=== PATIENT | female | born 1945 | race Two or more races ===

== ENCOUNTER 2019-05-16 12:26 | Inpatient (IN) | payer OTHER ==
[~2019-05-16] VITALS: Ht 167.6 cm; Wt 103.2 kg
[2019-05-16] VITALS (8 sets, daily range): BP systolic 138–186; BP diastolic 55–82
[~2019-05-16 12:26] MED LIST: HYDR-2761 PO
[2019-05-16] MEDS ORDERED: ONDANSETRON PF 4 MG/2 ML VIAL. IV ONE (12:45)
[2019-05-16] MEDS ORDERED: IV NORMAL SALINE 500ML BAG 500 ML IV ONE (12:45)
[2019-05-16] MEDS ORDERED: MORPHINE SULFATE 10 MG/ML VIAL. IV STA ×2 (12:45→13:33)
--- NOTE | 2019-05-16 12:54 | PHYS DOC ---
Past Medical History Past Medical History: Other Additional Past Medical Histor: "2 small holes in my heart" Past Surgical History: Cholecystectomy, Hysterectomy Additional Past Surgical Histo: R knee surgery, L foot surgery, cataracts Alcohol Use: None Drug Use: None Adult General Chief Complaint Chief Complaint: WRIST PAIN HPI HPI Patient is a 74 year old female who presents with deformity to the left wrist. The patient states she was at [employer] and something fell from the top shelf and she braced and blocked her body with her left hand/forearm and ever since then she's been in pain and had deformity to that area. The patient does take warfarin on a daily basis due to septal heart defect.. She states her last INR was 2.1. She rates her pain as 10 out of 10 in severity and sharp. The patient also states she's been having numbness and tingling in her hand, and her 3rd- fifth digits has felt cold to the touch. Review of Systems Review of Systems Constitutional: Denies fever or chills [] Eyes: Denies change in visual acuity, redness, or eye pain [] HENT: Denies nasal congestion or sore throat [] Respiratory: Denies cough or shortness of breath [] Cardiovascular: No additional information not addressed in HPI [] GI: Denies abdominal pain, nausea, vomiting, bloody stools or diarrhea [] : Denies dysuria or hematuria [] Musculoskeletal: Reports L wrist pain. Integument: Denies rash or skin lesions [] Neurologic: Denies headache, focal weakness or sensory changes [] Endocrine: Denies polyuria or polydipsia [] Complete systems were reviewed and found to be within normal limits, except as documented in this note. Current Medications Current Medications Current Medications Medications (Trade) Dose Ordered Sig/Leighann Start Time Stop Time Status Last Admin Dose Admin Cefazolin Sodium/ Dextrose 50 ml @ 100 mls/hr 1X PREOP PRN 05/16/19 14:45 Desflurane (Suprane) 30 ml STK-MED ONCE 05/16/19 14:52 05/16/19 14:52 DC Dexamethasone Sodium Phosphate (Decadron) 4 mg STK-MED ONCE 05/16/19 14:52 05/16/19 14:52 DC Fentanyl Citrate (Fentanyl 2ml Vial) 50 mcg PRN Q5MIN PRN 05/16/19 13:15 05/16/19 20:00 Hydromorphone HCl (Dilaudid) 0.5 mg PRN Q10MIN PRN 05/16/19 13:15 05/16/19 20:00 05/16/19 13:43 0.5 MG Lidocaine HCl (Lidocaine Pf 2% Vial) 5 ml STK-MED ONCE 05/16/19 14:51 05/16/19 14:52 DC Morphine Sulfate (Morphine Sulfate) 5 mg 1X STAT 05/16/19 13:33 05/16/19 13:38 DC Ondansetron HCl (Zofran) 4 mg STK-MED ONCE 05/16/19 14:52 05/16/19 14:52 DC Prochlorperazine Edisylate (Compazine) 5 mg PACU PRN PRN 05/16/19 13:15 05/16/19 20:00 Propofol 20 ml @ As Directed STK-MED ONCE 05/16/19 14:51 05/16/19 14:52 DC Ringer's Solution 1,000 ml @ 30 mls/hr Q24H 05/16/19 13:03 05/17/19 01:02 Sodium Chloride 500 ml @ 500 mls/hr 1X ONCE 05/16/19 12:45 05/16/19 13:44 DC 05/16/19 12:45 500 MLS/HR Allergies Allergies Allergies Coded Allergies Type Severity Reaction Last Updated Verified No Known Drug Allergies 05/10/14 No Physical Exam Physical Exam Constitutional: Well developed, well nourished, no acute distress, non-toxic appearance. [] HENT: Normocephalic, atraumatic, bilateral external ears normal, oropharynx moist, no oral exudates, nose normal. [] Eyes: PERRLA, EOMI, conjunctiva normal, no discharge. [] Neck: Normal range of motion, no tenderness, supple, no stridor. [] Cardiovascular:Heart rate regular rhythm, no murmur [] Lungs & Thorax: Bilateral breath sounds clear to auscultation [] Abdomen: Bowel sounds normal, soft, no tenderness, no masses, no pulsatile masses. [] Skin: Warm, dry, no erythema, no rash. [] Back: No tenderness, no CVA tenderness. [] Extremities: Deformity to L wrist with diffuse tenderness. No ROM, Can move f ingers and feel sensation to distal finger tips. The patient 3rd-5th digits are colder than 1st and 2nd digits. The patient has a weak radial pulse. Neurologic: Alert and oriented X 3, normal motor function, normal sensory function, no focal deficits noted. [] Psychologic: Affect normal, judgement normal, mood normal. [] Current Patient Data Vital Signs Vital Signs Date Time Temp Pulse Resp B/P (MAP) Pulse Ox O2 Delivery O2 Flow Rate FiO2 05/16/19 13:43 19 97 Room Air 05/16/19 13:13 99.2 91 187/99 (128) 99.2 Lab Values Laboratory Tests Test 05/16/19 12:50 05/16/19 13:05 05/16/19 13:40 White Blood Count 6.0 x10^3/uL (4.0-11.0) Red Blood Count 4.40 x10^6/uL (3.50-5.40) Hemoglobin 13.8 g/dL (12.0-15.5) Hematocrit 39.8 % (36.0-47.0) Mean Corpuscular Volume 91 fL (79-100) Mean Corpuscular Hemoglobin 31 pg (25-35) Mean Corpuscular Hemoglobin Concent 35 g/dL (31-37) Red Cell Distribution Width 14.0 % (11.5-14.5) Platelet Count 319 x10^3/uL (140-400) Neutrophils (%) (Auto) 52 % (31-73) Lymphocytes (%) (Auto) 40 % (24-48) Monocytes (%) (Auto) 5 % (0-9) Eosinophils (%) (Auto) 3 % (0-3) Basophils (%) (Auto) 1 % (0-3) Neutrophils # (Auto) 3.1 x10^3/uL (1.8-7.7) Lymphocytes # (Auto) 2.4 x10^3/uL (1.0-4.8) Monocytes # (Auto) 0.3 x10^3/uL (0.0-1.1) Eosinophils # (Auto) 0.2 x10^3/uL (0.0-0.7) Basophils # (Auto) 0.0 x10^3/uL (0.0-0.2) Sodium Level 144 mmol/L (136-145) Potassium Level 3.3 mmol/L (3.5-5.1) L Chloride Level 106 mmol/L (98-107) Carbon Dioxide Level 26 mmol/L (21-32) Anion Gap 12 (6-14) Blood Urea Nitrogen 6 mg/dL (7-20) L Creatinine 1.0 mg/dL (0.6-1.0) Estimated GFR (Cockcroft-Gault) 54.3 BUN/Creatinine Ratio 6 (6-20) Glucose Level 100 mg/dL (70-99) H Calcium Level 8.5 mg/dL (8.5-10.1) Total Bilirubin 0.7 mg/dL (0.2-1.0) Aspartate Amino Transferase (AST) 16 U/L (15-37) Alanine Aminotransferase (ALT) 13 U/L (14-59) L Alkaline Phosphatase 164 U/L (46-116) H Total Protein 7.9 g/dL (6.4-8.2) Albumin 3.6 g/dL (3.4-5.0) Albumin/Globulin Ratio 0.8 (1.0-1.7) L Prothrombin Time 26.7 SEC (11.7-14.0) H Prothrombin Time INR 2.5 (0.8-1.1) H Activated Partial Thromboplast Time 45 SEC (24-38) H Laboratory Tests 05/16/19 12:50 Laboratory Tests 05/16/19 13:05 EKG EKG [] Radiology/Procedures Radiology/Procedures [facility] [address] [place], [place] [id number] IMAGING REPORT Signed PATIENT: PIPER RAINES ACCOUNT: [id number] : 1945 LOCATION: ER AGE: 74 SEX: F EXAM STATUS: REG ER ORD. PHYSICIAN: ADRIEL MCCLELLAN APRN REASON: evaluate vascular status of L upper extremity./COLD LT HAND PROCEDURE: UPPER EXT ARTERIAL LEFT Left upper extremity arterial duplex ultrasound study without comparison for cold hand. TECHNIQUE AND FINDINGS: Real-time grayscale and color and spectral Doppler evaluation of the left upper extremity arterial vasculature is performed. The left subclavian, axillary, brachial, radial, and ulnar arteries are all widely patent demonstrating biphasic flow with no focal velocity elevations to suggest hemodynamically significant stenosis. Within the subcutaneous tissues of the dorsal forearm, there is a 5 cm x 1.7 cm complex fluid collection with no internal color flow, which could represent soft tissue abscess or hematoma. IMPRESSION: 1. No evidence of hemodynamic significant stenosis involving left upper extremity arterial tree. 2. 5 cm complex fluid collection in the dorsal forearm. Consider abscess versus hematoma. Electronically signed by: Robby Bates MD (05/16/2019 2:10 PM) [facility] DICTATED and SIGNED BY: ROBBY BATES MD DATE: 05/16/19 1410 [facility] [address] [place] [address] IMAGING REPORT Signed PATIENT: PIPER RAINES ACCOUNT: [id number] : 1945 LOCATION: ER AGE: 74 SEX: F EXAM STATUS: REG ER ORD. PHYSICIAN: ADRIEL MCCLELLAN APRN REASON: deformity, trauma PROCEDURE: FOREARM LEFT Left hand 3 views, left forearm 2 views, left wrist 3 views. HISTORY: Deformity, trauma Left hand 3 views were taken of the left hand. 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 There is no acute fracture noted involving the left hand. Left wrist 3 views 3 views were taken of the left wrist. There is significant dorsal soft tissue swelling with a possible prominent hematoma. There is no acute fracture. 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 Left forearm 2 views were taken of the left forearm. There is no acute fracture. There is no acute osseous abnormality. A good lateral of the elbow was not obtained. IMPRESSION: 1. Prominent dorsal soft tissue swelling at the wrist possible hematoma. 2. No fracture noted in the left forearm. 3. No acute fracture noted at the left wrist. 4. No fracture noted in the left hand. Electronically signed by: Bradley Fraser MD (05/16/2019 1:37 PM) [facility] DICTATED and SIGNED BY: BRADLEY FRASER MD DATE: 05/16/19 1337 [][facility] [address] [place], [place] [id number] IMAGING REPORT Signed PATIENT: PIPER RAINES ACCOUNT: [id number] : 1945 LOCATION: ER AGE: 74 SEX: F EXAM STATUS: REG ER ORD. PHYSICIAN: ADRIEL MCCLELLAN APRN REASON: surgical clearance PROCEDURE: CHEST AP ONLY AP chest. HISTORY: Surgical clearance, trauma, deformity at wrist AP view was taken of the chest. Lungs are clear. Heart is normal in size. There is no pleural effusion. IMPRESSION: 1. No acute chest disease. Electronically signed by: Bradley Fraser MD (05/16/2019 1:34 PM) [facility] DICTATED and SIGNED BY: BRADLEY FRASER MD DATE: 05/16/19 5845 Course & Med Decision Making Course & Med Decision Making Pertinent Labs and Imaging studies reviewed. (See chart for details) Am concerned that this patient will need surgery. Will go ahead and work labs, chest x-ray, ekg for surgical clearance. Will also get x-ray of wrist. Will o rder supportive care. Discussed with Dr. Casey from vascular who suggests an Ultrasound of the vessels. She suggests called orthopedics ([id number]). Discussed with Dr. Bolanos from Orthopedics ([id number]). Dr. Bolanos will take the patient to surgery. Will discuss with Dr. Fitzgerald for admission. Dr. Fitzgerald accepts admission ([id number]). Dragon Disclaimer Dragon Disclaimer This electronic medical record was generated, in whole or in part, using a voice recognition dictation system. Departure Departure Impression: Primary Impression: Traumatic hematoma of wrist Disposition: ADMITTED INPATIENT Condition: STABLE Referrals: AMY SAHNI (PCP) Problem Qualifiers Primary Impression: Traumatic hematoma of wrist Encounter type: initial encounter Laterality: left Qualified Codes: S60.212A - Contusion of left wrist, initial encounter ADRIEL MCCLELLAN APRN May 16, 2019 12:54
[2019-05-16 12:58] LABS: BASO % 1 % (0-3); EOS # 0.2 x10^3/uL (0.0-0.7); EOS % 3 % (0-3); HEMATOCRIT 39.8 % (36.0-47.0); HEMOGLOBIN 13.8 g/dL (12.0-15.5); LYMPH # 2.4 x10^3/uL (1.0-4.8); LYMPH % 40 % (24-48); MEAN CORPUSCULAR HEMOGLOBIN 31 pg (25-35); MEAN CORPUSCULAR HGB CONC 35 g/dL (31-37); MEAN CORPUSCULAR VOLUME 91 fL (79-100); MONO # 0.3 x10^3/uL (0.0-1.1); MONO % 5 % (0-9); NEUT # 3.1 x10^3/uL (1.8-7.7); NEUT % 52 % (31-73); PLATELET COUNT 319 x10^3/uL (140-400)
[2019-05-16] MEDS ORDERED: IV RINGERS,LACTATED 1000ML 1,000 ML IV SCH ×2 (13:03→16:15)
[2019-05-16] MEDS ORDERED: ONDANSETRON PF 4 MG/2 ML VIAL. IV PRN ×2 (13:15→16:15)
[2019-05-16] MEDS ORDERED: fentaNYL PF VIAL 100 MCG/2 ML VIAL IV PRN ×4 (13:15→16:15)
[2019-05-16] MEDS ORDERED: HYDROmorphone 2 MG/ML VIAL IV PRN ×2 (13:15→16:15)
[2019-05-16] MEDS ORDERED: MORPHINE SULFATE 2 MG/ML VIAL. IV PRN ×2 (13:15→16:15)
[2019-05-16] MEDS ORDERED: PROCHLORPERAZINE 10 MG/2 ML VIAL. IV PRN ×2 (13:15→16:15)
--- NOTE | 2019-05-16 13:37 | RAD ---
AP chest. HISTORY: Surgical clearance, trauma, deformity at wrist AP view was taken of the chest. Lungs are clear. Heart is normal in size. There is no pleural effusion. IMPRESSION: 1. No acute chest disease. Electronically signed by: Bradley Fraser MD (05/16/2019 1:34 PM) [facility]
[2019-05-16 13:39] LABS: CALCIUM 8.5 mg/dL (8.5-10.1); GFR 54.3; POTASSIUM 3.3 mmol/L (3.5-5.1)
--- NOTE | 2019-05-16 13:40 | RAD ---
Left hand 3 views, left forearm 2 views, left wrist 3 views. HISTORY: Deformity, trauma Left hand 3 views were taken of the left hand. 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 There is no acute fracture noted involving the left hand. Left wrist 3 views 3 views were taken of the left wrist. There is significant dorsal soft tissue swelling with a possible prominent hematoma. There is no acute fracture. 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 Left forearm 2 views were taken of the left forearm. There is no acute fracture. There is no acute osseous abnormality. A good lateral of the elbow was not obtained. IMPRESSION: 1. Prominent dorsal soft tissue swelling at the wrist possible hematoma. 2. No fracture noted in the left forearm. 3. No acute fracture noted at the left wrist. 4. No fracture noted in the left hand. Electronically signed by: Bradley Fraser MD (05/16/2019 1:37 PM) [facility]
[2019-05-16 13:45] LABS: ALBUMIN 3.6 g/dL (3.4-5.0); ALBUMIN/GLOBULIN RATIO 0.8 (1.0-1.7); TOTAL BILIRUBIN 0.7 mg/dL (0.2-1.0); TOTAL PROTEIN 7.9 g/dL (6.4-8.2)
[2019-05-16 14:10] LABS: PROTHROMBIN TIME PATIENT 26.7 SEC (11.7-14.0)
--- NOTE | 2019-05-16 14:13 | RAD ---
Left upper extremity arterial duplex ultrasound study without comparison for cold hand. TECHNIQUE AND FINDINGS: Real-time grayscale and color and spectral Doppler evaluation of the left upper extremity arterial vasculature is performed. The left subclavian, axillary, brachial, radial, and ulnar arteries are all widely patent demonstrating biphasic flow with no focal velocity elevations to suggest hemodynamically significant stenosis. Within the subcutaneous tissues of the dorsal forearm, there is a 5 cm x 1.7 cm complex fluid collection with no internal color flow, which could represent soft tissue abscess or hematoma. IMPRESSION: 1. No evidence of hemodynamic significant stenosis involving left upper extremity arterial tree. 2. 5 cm complex fluid collection in the dorsal forearm. Consider abscess versus hematoma. Electronically signed by: Robby Oneil MD (05/16/2019 2:10 PM) [id number]
[2019-05-16] MEDS ORDERED: PROPOFOL 20 ML IV ONE (14:51)
[2019-05-16] MEDS ORDERED: LIDOCAINE 2% PF 5 ML VIAL. ONE (14:51)
[2019-05-16] MEDS ORDERED: ONDANSETRON PF 4 MG/2 ML VIAL. ONE (14:52)
[2019-05-16] MEDS ORDERED: DEXAMETHASONE SOD PHOS 4 MG/ML VIAL ONE (14:52)
[2019-05-16] MEDS ORDERED: DESFLURANE 31 TO 60 MINUTES IH ONE (14:52)
--- NOTE | 2019-05-16 14:57 | PDOC1 ---
History and Physical Date of Admission Date of Admission DATE: 05/16/19 TIME: 14:57 Identification/Chief Complaint Chief Complaint SEEN IN er, was at [employer] and something fell from the top shelf and she braced and blocked her body with her left hand/forearm and ever since then she's been in pain and had deformity to that area. The patient does take warfarin on a daily basis due to septal heart defect.. She states her last INR was 2.1. She rates her pain as 10 out of 10 in severity and sharp. states she's been having numbness and tingling in her hand, Past Medical History Past Medical History Past Medical History Past Medical History Past Medical History: Other Additional Past Medical Histor: "2 small holes in my heart" Past Surgical History: Cholecystectomy, Hysterectomy Additional Past Surgical Histo: R knee surgery, L foot surgery, cataracts Alcohol Use: None Drug Use: None FHX OBESITY Family History Family History: Hypertension Social History Smoke: No ALCOHOL: none Drugs: None Current Problem List Problem List Problems Medical Problems: (1) Traumatic hematoma of wrist Status: Acute Current Medications Current Medications Current Medications Morphine Sulfate (Morphine Sulfate) 5 mg 1X STAT IV Last administered on 05/16/19at 13:00; Start 05/16/19 at 12:45; Stop 05/16/19 at 12:54; Status DC Ondansetron HCl (Zofran) 4 mg 1X ONCE IV Last administered on 05/16/19at 13:00; Start 05/16/19 at 12:45; Stop 05/16/19 at 12:54; Status DC Sodium Chloride 500 ml @ 500 mls/hr 1X ONCE IV Last administered on 05/16/19at 12:45; Start 05/16/19 at 12:45; Stop 05/16/19 at 13:44; Status DC Ondansetron HCl (Zofran) 4 mg PRN Q6HRS PRN IV NAUSEA/VOMITING; Start 05/16/19 at 13:15; Stop 05/16/19 at 20:00 Fentanyl Citrate (Fentanyl 2ml Vial) 25 mcg PRN Q5MIN PRN IV MILD PAIN 1-3; Start 05/16/19 at 13:15; Stop 05/16/19 at 20:00 Fentanyl Citrate (Fentanyl 2ml Vial) 50 mcg PRN Q5MIN PRN IV MODERATE TO SEVERE PAIN; Start 05/16/19 at 13:15; Stop 05/16/19 at 20:00 Morphine Sulfate (Morphine Sulfate) 1 mg PRN Q10MIN PRN IV SEVERE PAIN 7-10; Start 05/16/19 at 13:15; Stop 05/16/19 at 20:00 Ringer's Solution 1,000 ml @ 30 mls/hr Q24H IV ; Start 05/16/19 at 13:03; Stop 05/17/19 at 01:02 Hydromorphone HCl (Dilaudid) 0.5 mg PRN Q10MIN PRN IV SEV PAIN, Second choice Last administered on 05/16/19at 13:43; Start 05/16/19 at 13:15; Stop 05/16/19 at 20:00 Prochlorperazine Edisylate (Compazine) 5 mg PACU PRN PRN IV NAUSEA, MRX1; Start 05/16/19 at 13:15; Stop 05/16/19 at 20:00 Morphine Sulfate (Morphine Sulfate) 5 mg 1X STAT IV ; Start 05/16/19 at 13:33; Stop 05/16/19 at 13:38; Status DC Cefazolin Sodium/ Dextrose 50 ml @ 100 mls/hr 1X PREOP PRN IV SEE COMMENTS; Start 05/16/19 at 14:45 Propofol 20 ml @ As Directed STK-MED ONCE IV ; Start 05/16/19 at 14:51; Stop 05/16/19 at 14:52; Status DC Lidocaine HCl (Lidocaine Pf 2% Vial) 5 ml STK-MED ONCE .ROUTE ; Start 05/16/19 at 14:51; Stop 05/16/19 at 14:52; Status DC Ondansetron HCl (Zofran) 4 mg STK-MED ONCE .ROUTE ; Start 05/16/19 at 14:52; Stop 05/16/19 at 14:52; Status DC Dexamethasone Sodium Phosphate (Decadron) 4 mg STK-MED ONCE .ROUTE ; Start 05/16/19 at 14:52; Stop 05/16/19 at 14:52; Status DC Desflurane (Suprane) 30 ml STK-MED ONCE IH ; Start 05/16/19 at 14:52; Stop 05/16/19 at 14:52; Status DC Active Scripts Active Hydrocodone-Apap 5-325 (Hydrocodone Bit/Acetaminophen) 1 Each Tablet 1 Tab PO PRN Q6HRS PRN Allergies Allergies: Coded Allergies: No Known Drug Allergies (Unverified , 05/10/14) ROS Review of System Review of Systems Review of Systems Constitutional: Denies fever or chills [] Eyes: Denies change in visual acuity, redness, or eye pain [] HENT: Denies nasal congestion or sore throat [] Respiratory: Denies cough or shortness of breath [] Cardiovascular: No additional information not addressed in HPI [] GI: Denies abdominal pain, nausea, vomiting, bloody stools or diarrhea [] : Denies dysuria or hematuria [] Musculoskeletal: Reports L wrist pain. Integument: Denies rash or skin lesions [] Neurologic: Denies headache, focal weakness or sensory changes [] Endocrine: Denies polyuria or polydipsia [] 14 pt systems were reviewed and found to be within normal limits, except as documented Physical Exam Physical Exam Physical Exam Physical Exam Constitutional: Well developed, well nourished, mild acute distress, non-toxic appearance. [] HENT: Normocephalic, atraumatic, bilateral external ears normal, oropharynx mois t, no oral exudates, nose normal. [] Eyes: PERRLA, EOMI, conjunctiva normal, no discharge. [] Neck: Normal range of motion, no tenderness, supple, no stridor. [] Cardiovascular:Heart rate regular rhythm, no murmur [] Lungs & Thorax: Bilateral breath sounds clear to auscultation [] Abdomen: Bowel sounds normal, soft, no tenderness, no masses, no pulsatile masses. [] Skin: Warm, dry, no erythema, no rash. [] Back: No tenderness, no CVA tenderness. [] Extremities: Deformity to L wrist with diffuse tenderness. No ROM, Can move fingers and feel sensation to distal finger tips. The patient 3rd-5th digits are colder than 1st and 2nd digits. The patient has a weak radial pulse. Neurologic: Alert and oriented X 3, normal motor function, normal sensory function, no focal deficits noted. [] Psychologic: Affect normal, judgment normal, mood normal. [] General: Alert, Oriented X3, Cooperative, mild distress HEENT: Atraumatic, EOMI, Mucous membr. moist/pink Lungs: Clear to auscultation, Normal air movement Heart: RRR, no gallops Breasts: Not examined Abdomen: Normal bowel sounds, Soft Rectal Exam: not examined Neuro: Normal speech, Cranial nerves 3-12 NL Psych/Mental Status: Mental status NL, Mood NL Vitals Vitals Vital Signs Date Time Temp Pulse Resp B/P (MAP) Pulse Ox O2 Delivery O2 Flow Rate FiO2 05/16/19 13:43 19 97 Room Air 05/16/19 13:13 99.2 91 187/99 (128) 99.2 Labs Labs Laboratory Tests Test 05/16/19 12:50 05/16/19 13:05 05/16/19 13:40 White Blood Count 6.0 x10^3/uL (4.0-11.0) Red Blood Count 4.40 x10^6/uL (3.50-5.40) Hemoglobin 13.8 g/dL (12.0-15.5) Hematocrit 39.8 % (36.0-47.0) Mean Corpuscular Volume 91 fL (79-100) Mean Corpuscular Hemoglobin 31 pg (25-35) Mean Corpuscular Hemoglobin Concent 35 g/dL (31-37) Red Cell Distribution Width 14.0 % (11.5-14.5) Platelet Count 319 x10^3/uL (140-400) Neutrophils (%) (Auto) 52 % (31-73) Lymphocytes (%) (Auto) 40 % (24-48) Monocytes (%) (Auto) 5 % (0-9) Eosinophils (%) (Auto) 3 % (0-3) Basophils (%) (Auto) 1 % (0-3) Neutrophils # (Auto) 3.1 x10^3/uL (1.8-7.7) Lymphocytes # (Auto) 2.4 x10^3/uL (1.0-4.8) Monocytes # (Auto) 0.3 x10^3/uL (0.0-1.1) Eosinophils # (Auto) 0.2 x10^3/uL (0.0-0.7) Basophils # (Auto) 0.0 x10^3/uL (0.0-0.2) Sodium Level 144 mmol/L (136-145) Potassium Level 3.3 mmol/L (3.5-5.1) Chloride Level 106 mmol/L (98-107) Carbon Dioxide Level 26 mmol/L (21-32) Anion Gap 12 (6-14) Blood Urea Nitrogen 6 mg/dL (7-20) Creatinine 1.0 mg/dL (0.6-1.0) Estimated GFR (Cockcroft-Gault) 54.3 BUN/Creatinine Ratio 6 (6-20) Glucose Level 100 mg/dL (70-99) Calcium Level 8.5 mg/dL (8.5-10.1) Total Bilirubin 0.7 mg/dL (0.2-1.0) Aspartate Amino Transf (AST/SGOT) 16 U/L (15-37) Alanine Aminotransferase (ALT/SGPT) 13 U/L (14-59) Alkaline Phosphatase 164 U/L (46-116) Total Protein 7.9 g/dL (6.4-8.2) Albumin 3.6 g/dL (3.4-5.0) Albumin/Globulin Ratio 0.8 (1.0-1.7) Prothrombin Time 26.7 SEC (11.7-14.0) Prothromb Time International Ratio 2.5 (0.8-1.1) Activated Partial Thromboplast Time 45 SEC (24-38) Laboratory Tests Test 05/16/19 12:50 05/16/19 13:05 05/16/19 13:40 White Blood Count 6.0 x10^3/uL (4.0-11.0) Red Blood Count 4.40 x10^6/uL (3.50-5.40) Hemoglobin 13.8 g/dL (12.0-15.5) Hematocrit 39.8 % (36.0-47.0) Mean Corpuscular Volume 91 fL (79-100) Mean Corpuscular Hemoglobin 31 pg (25-35) Mean Corpuscular Hemoglobin Concent 35 g/dL (31-37) Red Cell Distribution Width 14.0 % (11.5-14.5) Platelet Count 319 x10^3/uL (140-400) Neutrophils (%) (Auto) 52 % (31-73) Lymphocytes (%) (Auto) 40 % (24-48) Monocytes (%) (Auto) 5 % (0-9) Eosinophils (%) (Auto) 3 % (0-3) Basophils (%) (Auto) 1 % (0-3) Neutrophils # (Auto) 3.1 x10^3/uL (1.8-7.7) Lymphocytes # (Auto) 2.4 x10^3/uL (1.0-4.8) Monocytes # (Auto) 0.3 x10^3/uL (0.0-1.1) Eosinophils # (Auto) 0.2 x10^3/uL (0.0-0.7) Basophils # (Auto) 0.0 x10^3/uL (0.0-0.2) Sodium Level 144 mmol/L (136-145) Potassium Level 3.3 mmol/L (3.5-5.1) Chloride Level 106 mmol/L (98-107) Carbon Dioxide Level 26 mmol/L (21-32) Anion Gap 12 (6-14) Blood Urea Nitrogen 6 mg/dL (7-20) Creatinine 1.0 mg/dL (0.6-1.0) Estimated GFR (Cockcroft-Gault) 54.3 BUN/Creatinine Ratio 6 (6-20) Glucose Level 100 mg/dL (70-99) Calcium Level 8.5 mg/dL (8.5-10.1) Total Bilirubin 0.7 mg/dL (0.2-1.0) Aspartate Amino Transf (AST/SGOT) 16 U/L (15-37) Alanine Aminotransferase (ALT/SGPT) 13 U/L (14-59) Alkaline Phosphatase 164 U/L (46-116) Total Protein 7.9 g/dL (6.4-8.2) Albumin 3.6 g/dL (3.4-5.0) Albumin/Globulin Ratio 0.8 (1.0-1.7) Prothrombin Time 26.7 SEC (11.7-14.0) Prothromb Time International Ratio 2.5 (0.8-1.1) Activated Partial Thromboplast Time 45 SEC (24-38) Images Images PATIENT: PIPER RAINES ACCOUNT: [id number] : 1945 LOCATION: ER AGE: 74 SEX: F EXAM STATUS: REG ER ORD. PHYSICIAN: ADRIEL MCCLELLAN APRN REASON: evaluate vascular status of L upper extremity./COLD LT HAND PROCEDURE: UPPER EXT ARTERIAL LEFT Left upper extremity arterial duplex ultrasound study without comparison for cold hand. TECHNIQUE AND FINDINGS: Real-time grayscale and color and spectral Doppler evaluation of the left upper extremity arterial vasculature is performed. The left subclavian, axillary, brachial, radial, and ulnar arteries are all widely patent demonstrating biphasic flow with no focal velocity elevations to suggest hemodynamically significant stenosis. Within the subcutaneous tissues of the dorsal forearm, there is a 5 cm x 1.7 cm complex fluid collection with no internal color flow, which could represent soft tissue abscess or hematoma. IMPRESSION: 1. No evidence of hemodynamic significant stenosis involving left upper extremity arterial tree. 2. 5 cm complex fluid collection in the dorsal forearm. Consider abscess versus hematoma. Electronically signed by: Robby Bates MD (05/16/2019 2:10 PM) [facility] DICTATED and SIGNED BY: ROBBY BATES MD DATE: 05/16/19 141 Left hand 3 views, left forearm 2 views, left wrist 3 views. HISTORY: Deformity, trauma Left hand 3 views were taken of the left hand. 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 There is no acute fracture noted involving the left hand. Left wrist 3 views 3 views were taken of the left wrist. There is significant dorsal soft tissue swelling with a possible prominent hematoma. There is no acute fracture. 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 Left forearm 2 views were taken of the left forearm. There is no acute fracture. There is no acute osseous abnormality. A good lateral of the elbow was not obtained. IMPRESSION: 1. Prominent dorsal soft tissue swelling at the wrist possible hematoma. 2. No fracture noted in the left forearm. 3. No acute fracture noted at the left wrist. 4. No fracture noted in the left hand. Electronically signed by: Bradley Fraser MD (05/16/2019 1:37 PM) [facility] DICTATED and SIGNED BY: BRADLEY FRASER MD VTE Prophylaxis Ordered VTE Prophylaxis Devices: Contraindicated VTE Pharmacological Prophylaxi: Contraindicated Assessment/Plan Assessment/Plan IMPRESSION: 1. Prominent dorsal soft tissue swelling at the wrist large hematoma. sec to mechanical fall of object at retail store today 2. No fracture noted in the left forearm. 3. No acute fracture noted at the left wrist. 4. No fracture noted in the left hand. 5. 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 6. 5 cm complex fluid collection in the dorsal forearm. // hematoma. ] plan admit ortho consult iv pain control npo ADIEL MCGEE MD May 16, 2019 14:57
[2019-05-16] MEDS ORDERED: BUPIVACAINE MPF 0.25% 30 ML VIAL. ONE (15:31)
[2019-05-16] MEDS ORDERED: ePHEDrine PF IN SALINE 50 MG/10 ML SYRINGE. IV ONE (15:32)
--- NOTE | 2019-05-16 16:08 | PDOC4 ---
Operative Note Operative Note Date of Procedure: May 16, 2019 Pre-Op Diagnosis: 1. Contusion of left wrist, initial encounter S60.212A Post-Op Diagnosis: 1. Contusion of left wrist, initial encounter S60.212A Procedure: 1. Incision and drainage left wrist deep hematoma CPT 82302 Surgeon: Lyly Bolanos MD Anesthesia: General EBL: 25 mL Specimens Obtained: none Complications: none Drains: none Findings: Tense hematoma left forearm and wrist. Deep venous bleeding was cauterized. Indications for Procedure: This patient is a 74 -year-old with recent trauma to the wrist. She was at [employer] when a canvas frame landed on her wrist earlier today. She is on Coumadin due to cardiac disease, and her INR is 2.5. She had rapid swelling and deformity of the wrist and severe pain. There was discoloration of the dorsum of the wrist skin, and she started a loose feeling in the fingertips and have slight cool sensation to the fingers. This appeared to be an isolated hematoma rather than any compartment syndrome. We talked about options for treatment such as observation but due to the tense tissues and rapid accumulation of the blood I did recommend incision and drainage. We talked about the potential risks of infection, recurrent bleeding, nerve injury and numbness of the back of the hand, or other potential surgical or anesthetic complications. We talked about the potential risks of simply observing the hematoma which include skin necrosis or development of an abscess among other risks. All of her questions about surgery were answered and she desired to proc eed. Procedure in Detail: The patient was identified in the preoperative holding area. The correct left upper extremity was marked by me. The patient was taken to the operating room where general anesthetic was used. The patient was positioned supine on the operating table with the arm extended on an arm board. A tourniquet was applied to the upper portion of the limb. Preoperative antibiotics were given intravenously. A timeout procedure was performed. The limb was prepared in sterile fashion with ChloraPrep solution circumferentially and sterile drapes were applied. I did not inflate the tourniquet, but it was in place in case excessive bleeding occurred. A longitudinal incision was made over the fourth dorsal compartment, centered over the area of the distinct tense hematoma. Incision was made through the skin and subcutaneous tissues and care was made not to injure the s ensory nerves. The hematoma was encountered at the level of the dorsal forearm tendons, and was removed with suction, and digital manipulation. This was already a gelatinous mass, and would have not been amenable to aspiration. It looked like a large lump of Jell-O made from red wine. After the hematoma was removed, I could see the venous bleeding location at the dorsum of the extensor retinaculum. I used Bovie electrocautery carefully to avoid tendon injury and stopped the bleeding. I then used copious saline irrigation and removed any remaining hematoma fragments. A Yves drain through a separate stab incision was placed to prevent reaccumulation of a bloody hematoma. Bovie electrocautery was used for hemostasis in the subcutaneous tissues. I closed the subcutaneous tissues and the space with #3-0 Vicryl sutures in inverted interrupted pattern. Local anesthetic without epinephrine was injected into the skin edges. The skin was reapproximated with #3-0 nylon interrupted sutures. Xeroform and a bulky sterile dressing were applied. Needle and sponge counts were correct. There were no apparent complications. The patient returned to the recovery room in stable condition. LYLY BOLANOS MD May 16, 2019 16:08
[2019-05-16] MEDS ORDERED: fentaNYL PF VIAL 100 MCG/2 ML VIAL ONE (16:10)
[2019-05-16] MEDS ORDERED: MEPERIDINE PF 25 MG/ML VIAL. IV PRN (16:30)
[2019-05-16] MEDS ORDERED: WARF3TAB50 PO (18:40)
[2019-05-16] MEDS: HYDROmorphone 2 MG/ML VIAL IV PRN (19:54)
[2019-05-16] MEDS: HYDROcodone/APAP 7.5/325MG 1 TAB TABLET PO PRN (22:31)
[2019-05-17] MEDS: HYDROcodone/APAP 7.5/325MG 1 TAB TABLET PO PRN ×2 (01:55→09:56)
[2019-05-17] MEDS: HYDROmorphone 2 MG/ML VIAL IV PRN (01:59)
[2019-05-17 03:00] VITALS: BP 135/67
[2019-05-17 07:00] VITALS: BP 126/57
[2019-05-17] MEDS ORDERED: ONDANSETRON PF 4 MG/2 ML VIAL. IVP PRN (08:15)
[2019-05-17] MEDS ORDERED: PROCHLORPERAZINE 10 MG/2 ML VIAL. IV ONE (09:15)
[2019-05-17] MEDS ORDERED: POTASSIUM CL 20MEQ D5-0.45NACL 1,000 ML IV ONE (09:15)
--- NOTE | 2019-05-17 09:58 | PDOC ---
PROGRESS NOTES Chief Complaint Chief Complaint Tense hematoma left forearm and wrist. She had rapid swelling and deformity of the wrist and severe pain after falling, now POD #1 obese, BMI 37 afib, chronic diastolic CHF, stable History of Present Illness History of Present Illness She was at [employer] when a canvas frame landed on her wrist try to DC if nausea is better and she can have more PO intake Vitals Vitals Vital Signs Date Time Temp Pulse Resp B/P (MAP) Pulse Ox O2 Delivery O2 Flow Rate FiO2 05/17/19 07:00 98.1 76 16 126/57 (80) 94 Room Air 98.1 05/17/19 04:56 2.0 Physical Exam General: Alert, Oriented X3, Cooperative, mild distress Heart: Regular rate, Other (irrg) Lungs: Clear Abdomen: Normal bowel sounds, Soft Labs LABS Laboratory Tests Test 05/16/19 12:50 05/16/19 13:05 05/16/19 13:40 White Blood Count 6.0 x10^3/uL (4.0-11.0) Red Blood Count 4.40 x10^6/uL (3.50-5.40) Hemoglobin 13.8 g/dL (12.0-15.5) Hematocrit 39.8 % (36.0-47.0) Mean Corpuscular Volume 91 fL (79-100) Mean Corpuscular Hemoglobin 31 pg (25-35) Mean Corpuscular Hemoglobin Concent 35 g/dL (31-37) Red Cell Distribution Width 14.0 % (11.5-14.5) Platelet Count 319 x10^3/uL (140-400) Neutrophils (%) (Auto) 52 % (31-73) Lymphocytes (%) (Auto) 40 % (24-48) Monocytes (%) (Auto) 5 % (0-9) Eosinophils (%) (Auto) 3 % (0-3) Basophils (%) (Auto) 1 % (0-3) Neutrophils # (Auto) 3.1 x10^3/uL (1.8-7.7) Lymphocytes # (Auto) 2.4 x10^3/uL (1.0-4.8) Monocytes # (Auto) 0.3 x10^3/uL (0.0-1.1) Eosinophils # (Auto) 0.2 x10^3/uL (0.0-0.7) Basophils # (Auto) 0.0 x10^3/uL (0.0-0.2) Sodium Level 144 mmol/L (136-145) Potassium Level 3.3 mmol/L (3.5-5.1) Chloride Level 106 mmol/L (98-107) Carbon Dioxide Level 26 mmol/L (21-32) Anion Gap 12 (6-14) Blood Urea Nitrogen 6 mg/dL (7-20) Creatinine 1.0 mg/dL (0.6-1.0) Estimated GFR (Cockcroft-Gault) 54.3 BUN/Creatinine Ratio 6 (6-20) Glucose Level 100 mg/dL (70-99) Calcium Level 8.5 mg/dL (8.5-10.1) Total Bilirubin 0.7 mg/dL (0.2-1.0) Aspartate Amino Transf (AST/SGOT) 16 U/L (15-37) Alanine Aminotransferase (ALT/SGPT) 13 U/L (14-59) Alkaline Phosphatase 164 U/L (46-116) Total Protein 7.9 g/dL (6.4-8.2) Albumin 3.6 g/dL (3.4-5.0) Albumin/Globulin Ratio 0.8 (1.0-1.7) Prothrombin Time 26.7 SEC (11.7-14.0) Prothromb Time International Ratio 2.5 (0.8-1.1) Activated Partial Thromboplast Time 45 SEC (24-38) Assessment and Plan Assessmemt and Plan Problems Medical Problems: (1) Traumatic hematoma of wrist Status: Acute Comment Review of Relevant I have reviewed the following items herrera (where applicable) has been applied. Labs Laboratory Tests Test 05/16/19 12:50 05/16/19 13:05 05/16/19 13:40 White Blood Count 6.0 x10^3/uL (4.0-11.0) Red Blood Count 4.40 x10^6/uL (3.50-5.40) Hemoglobin 13.8 g/dL (12.0-15.5) Hematocrit 39.8 % (36.0-47.0) Mean Corpuscular Volume 91 fL (79-100) Mean Corpuscular Hemoglobin 31 pg (25-35) Mean Corpuscular Hemoglobin Concent 35 g/dL (31-37) Red Cell Distribution Width 14.0 % (11.5-14.5) Platelet Count 319 x10^3/uL (140-400) Neutrophils (%) (Auto) 52 % (31-73) Lymphocytes (%) (Auto) 40 % (24-48) Monocytes (%) (Auto) 5 % (0-9) Eosinophils (%) (Auto) 3 % (0-3) Basophils (%) (Auto) 1 % (0-3) Neutrophils # (Auto) 3.1 x10^3/uL (1.8-7.7) Lymphocytes # (Auto) 2.4 x10^3/uL (1.0-4.8) Monocytes # (Auto) 0.3 x10^3/uL (0.0-1.1) Eosinophils # (Auto) 0.2 x10^3/uL (0.0-0.7) Basophils # (Auto) 0.0 x10^3/uL (0.0-0.2) Sodium Level 144 mmol/L (136-145) Potassium Level 3.3 mmol/L (3.5-5.1) Chloride Level 106 mmol/L (98-107) Carbon Dioxide Level 26 mmol/L (21-32) Anion Gap 12 (6-14) Blood Urea Nitrogen 6 mg/dL (7-20) Creatinine 1.0 mg/dL (0.6-1.0) Estimated GFR (Cockcroft-Gault) 54.3 BUN/Creatinine Ratio 6 (6-20) Glucose Level 100 mg/dL (70-99) Calcium Level 8.5 mg/dL (8.5-10.1) Total Bilirubin 0.7 mg/dL (0.2-1.0) Aspartate Amino Transf (AST/SGOT) 16 U/L (15-37) Alanine Aminotransferase (ALT/SGPT) 13 U/L (14-59) Alkaline Phosphatase 164 U/L (46-116) Total Protein 7.9 g/dL (6.4-8.2) Albumin 3.6 g/dL (3.4-5.0) Albumin/Globulin Ratio 0.8 (1.0-1.7) Prothrombin Time 26.7 SEC (11.7-14.0) Prothromb Time International Ratio 2.5 (0.8-1.1) Activated Partial Thromboplast Time 45 SEC (24-38) Laboratory Tests Test 05/16/19 12:50 05/16/19 13:05 05/16/19 13:40 White Blood Count 6.0 x10^3/uL (4.0-11.0) Red Blood Count 4.40 x10^6/uL (3.50-5.40) Hemoglobin 13.8 g/dL (12.0-15.5) Hematocrit 39.8 % (36.0-47.0) Mean Corpuscular Volume 91 fL (79-100) Mean Corpuscular Hemoglobin 31 pg (25-35) Mean Corpuscular Hemoglobin Concent 35 g/dL (31-37) Red Cell Distribution Width 14.0 % (11.5-14.5) Platelet Count 319 x10^3/uL (140-400) Neutrophils (%) (Auto) 52 % (31-73) Lymphocytes (%) (Auto) 40 % (24-48) Monocytes (%) (Auto) 5 % (0-9) Eosinophils (%) (Auto) 3 % (0-3) Basophils (%) (Auto) 1 % (0-3) Neutrophils # (Auto) 3.1 x10^3/uL (1.8-7.7) Lymphocytes # (Auto) 2.4 x10^3/uL (1.0-4.8) Monocytes # (Auto) 0.3 x10^3/uL (0.0-1.1) Eosinophils # (Auto) 0.2 x10^3/uL (0.0-0.7) Basophils # (Auto) 0.0 x10^3/uL (0.0-0.2) Sodium Level 144 mmol/L (136-145) Potassium Level 3.3 mmol/L (3.5-5.1) Chloride Level 106 mmol/L (98-107) Carbon Dioxide Level 26 mmol/L (21-32) Anion Gap 12 (6-14) Blood Urea Nitrogen 6 mg/dL (7-20) Creatinine 1.0 mg/dL (0.6-1.0) Estimated GFR (Cockcroft-Gault) 54.3 BUN/Creatinine Ratio 6 (6-20) Glucose Level 100 mg/dL (70-99) Calcium Level 8.5 mg/dL (8.5-10.1) Total Bilirubin 0.7 mg/dL (0.2-1.0) Aspartate Amino Transf (AST/SGOT) 16 U/L (15-37) Alanine Aminotransferase (ALT/SGPT) 13 U/L (14-59) Alkaline Phosphatase 164 U/L (46-116) Total Protein 7.9 g/dL (6.4-8.2) Albumin 3.6 g/dL (3.4-5.0) Albumin/Globulin Ratio 0.8 (1.0-1.7) Prothrombin Time 26.7 SEC (11.7-14.0) Prothromb Time International Ratio 2.5 (0.8-1.1) Activated Partial Thromboplast Time 45 SEC (24-38) Medications Current Medications Morphine Sulfate (Morphine Sulfate) 5 mg 1X STAT IV Last administered on 05/16/19at 13:00; Start 05/16/19 at 12:45; Stop 05/16/19 at 12:54; Status DC Ondansetron HCl (Zofran) 4 mg 1X ONCE IV Last administered on 05/16/19at 13:00; Start 05/16/19 at 12:45; Stop 05/16/19 at 12:54; Status DC Sodium Chloride 500 ml @ 500 mls/hr 1X ONCE IV Last administered on 05/16/19at 12:45; Start 05/16/19 at 12:45; Stop 05/16/19 at 13:44; Status DC Ondansetron HCl (Zofran) 4 mg PRN Q6HRS PRN IV NAUSEA/VOMITING; Start 05/16/19 at 13:15; Stop 05/16/19 at 20:00; Status DC Fentanyl Citrate (Fentanyl 2ml Vial) 25 mcg PRN Q5MIN PRN IV MILD PAIN 1-3; Start 05/16/19 at 13:15; Stop 05/16/19 at 20:00; Status DC Fentanyl Citrate (Fentanyl 2ml Vial) 50 mcg PRN Q5MIN PRN IV MODERATE TO SEVERE PAIN Last administered on 05/16/19at 16:15; Start 05/16/19 at 13:15; Stop 05/16/19 at 20:00; Status DC Morphine Sulfate (Morphine Sulfate) 1 mg PRN Q10MIN PRN IV SEVERE PAIN 7-10; Start 05/16/19 at 13:15; Stop 05/16/19 at 20:00; Status DC Ringer's Solution 1,000 ml @ 30 mls/hr Q24H IV Last administered on 05/16/19at 15:10; Start 05/16/19 at 13:03; Stop 05/17/19 at 01:02; Status DC Hydromorphone HCl (Dilaudid) 0.5 mg PRN Q10MIN PRN IV SEV PAIN, Second choice Last administered on 05/16/19at 13:43; Start 05/16/19 at 13:15; Stop 05/16/19 at 20:00; Status DC Prochlorperazine Edisylate (Compazine) 5 mg PACU PRN PRN IV NAUSEA, MRX1; Start 05/16/19 at 13:15; Stop 05/16/19 at 20:00; Status DC Morphine Sulfate (Morphine Sulfate) 5 mg 1X STAT IV ; Start 05/16/19 at 13:33; Stop 05/16/19 at 13:38; Status DC Cefazolin Sodium/ Dextrose 50 ml @ 100 mls/hr 1X PREOP PRN IV SEE COMMENTS Last administered on 05/16/19at 15:10; Start 05/16/19 at 14:45 Propofol 20 ml @ As Directed STK-MED ONCE IV ; Start 05/16/19 at 14:51; Stop 05/16/19 at 14:52; Status DC Lidocaine HCl (Lidocaine Pf 2% Vial) 5 ml STK-MED ONCE .ROUTE ; Start 05/16/19 at 14:51; Stop 05/16/19 at 14:52; Status DC Ondansetron HCl (Zofran) 4 mg STK-MED ONCE .ROUTE ; Start 05/16/19 at 14:52; Stop 05/16/19 at 14:52; Status DC Dexamethasone Sodium Phosphate (Decadron) 4 mg STK-MED ONCE .ROUTE ; Start 05/16/19 at 14:52; Stop 05/16/19 at 14:52; Status DC Desflurane (Suprane) 30 ml STK-MED ONCE IH ; Start 05/16/19 at 14:52; Stop 05/16/19 at 14:52; Status DC Bupivacaine HCl (Sensorcaine Mpf 0.25%) 30 ml STK-MED ONCE .ROUTE Last administered on 05/16/19at 15:38; Start 05/16/19 at 15:31; Stop 05/16/19 at 15:31; Status DC Ephedrine Sulfate (ePHEDrine PF IN SALINE SYRINGE) 50 mg STK-MED ONCE IV ; Start 05/16/19 at 15:32; Stop 05/16/19 at 15:32; Status DC Cefazolin Sodium/ Dextrose 50 ml @ 100 mls/hr Q6H IV Last administered on 05/17/19at 07:59; Start 05/16/19 at 21:00; Stop 05/17/19 at 09:29; Status DC Fentanyl Citrate (Fentanyl 2ml Vial) 100 mcg STK-MED ONCE .ROUTE ; Start 05/16/19 at 16:10; Stop 05/16/19 at 16:10; Status DC Ondansetron HCl (Zofran) 4 mg PRN Q6HRS PRN IV NAUSEA/VOMITING; Start 05/16/19 at 16:15; Stop 05/17/19 at 16:14; Status UNV Fentanyl Citrate (Fentanyl 2ml Vial) 25 mcg PRN Q5MIN PRN IV MILD PAIN 1-3; Start 05/16/19 at 16:15; Stop 05/17/19 at 16:14; Status UNV Fentanyl Citrate (Fentanyl 2ml Vial) 50 mcg PRN Q5MIN PRN IV MODERATE TO SEVERE PAIN; Start 05/16/19 at 16:15; Stop 05/17/19 at 16:14; Status UNV Morphine Sulfate (Morphine Sulfate) 1 mg PRN Q10MIN PRN IV SEVERE PAIN 7-10; Start 05/16/19 at 16:15; Stop 05/17/19 at 16:14; Status UNV Ringer's Solution 1,000 ml @ 30 mls/hr Q24H IV ; Start 05/16/19 at 16:15; Stop 05/17/19 at 04:14; Status UNV Hydromorphone HCl (Dilaudid) 0.5 mg PRN Q10MIN PRN IV SEV PAIN, Second choice; Start 05/16/19 at 16:15; Stop 05/17/19 at 16:14; Status UNV Prochlorperazine Edisylate (Compazine) 5 mg PACU PRN PRN IV NAUSEA, MRX1; Start 05/16/19 at 16:15; Stop 05/17/19 at 16:14; Status UNV Meperidine HCl (Demerol) 12.5 mg PRN Q5MIN PRN IV SHIVERING Last administered on 05/16/19at 16:25; Start 05/16/19 at 16:30; Stop 05/16/19 at 20:00; Status DC Hydromorphone HCl (Dilaudid) 1 mg PRN Q3HRS PRN IV PAIN Last administered on 05/17/19at 01:59; Start 05/16/19 at 19:15 Acetaminophen/ Hydrocodone Bitart (Lortab 7.5/325) 1 tab PRN Q4HRS PRN PO PAIN Last administered on 05/17/19at 01:55; Start 05/16/19 at 19:15 Ondansetron HCl (Zofran) 4 mg PRN Q4HRS PRN IVP NAUSEA/VOMITING Last administered on 05/17/19at 08:26; Start 05/17/19 at 08:15 Prochlorperazine Edisylate (Compazine) 10 mg 1X ONCE IV ; Start 05/17/19 at 09:15; Stop 05/17/19 at 09:19; Status DC Potassium Chloride/Dextrose/ Sod Cl 1,000 ml @ 125 mls/hr 1X ONCE IV ; Start 05/17/19 at 09:15; Stop 05/17/19 at 17:14 Active Scripts Active Hydrocodone-Apap 5-325 (Hydrocodone Bit/Acetaminophen) 1 Each Tablet 1 Tab PO PRN Q6HRS PRN Reported Warfarin Sodium 3 Mg Tablet 3 Mg PO DAILY Vitals/I & O Vital Sign - Last 24 Hours 05/16/19 05/16/19 05/16/19 05/16/19 13:00 13:13 13:43 15:59 Temp 99.2 99.2 99.2 99.2 Pulse 91 95 Resp 18 B/P (MAP) 187/99 (128) 118/78 Pulse Ox 99 99 97 99 O2 Delivery Room Air Room Air Room Air Simple Mask O2 Flow Rate 8 05/16/19 05/16/19 05/16/19 05/16/19 15:59 16:15 16:15 16:25 Pulse 94 Resp 18 18 18 B/P (MAP) 145/69 Pulse Ox 99 100 99 O2 Delivery Mask Simple Mask Simple Mask Simple Mask O2 Flow Rate 8 8.0 8 8.0 05/16/19 05/16/19 05/16/19 05/16/19 16:30 16:45 16:47 18:00 Temp 99.0 98.0 99.0 98.0 Pulse 82 75 76 Resp 20 18 20 B/P (MAP) 121/61 111/69 154/63 (93) Pulse Ox 95 95 98 O2 Delivery Room Air Room Air Mask Room Air O2 Flow Rate 8.0 05/16/19 05/16/19 05/16/19 05/16/19 18:09 18:16 18:30 19:00 Pulse 74 69 71 71 Resp 18 B/P (MAP) 151/68 (95) 154/63 (93) 145/55 (85) 153/63 (93) Pulse Ox 95 95 96 95 05/16/19 05/16/19 05/16/19 05/16/19 19:30 19:54 20:30 20:30 Pulse 85 81 B/P (MAP) 186/82 (116) 138/58 (84) Pulse Ox 97 95 O2 Delivery Room Air Nasal Cannula O2 Flow Rate 2.0 05/16/19 05/16/19 05/16/19 05/16/19 21:49 22:31 23:00 23:50 Temp 98.2 98.2 Pulse 71 B/P (MAP) 142/58 (86) Pulse Ox 98 95 O2 Delivery Nasal Cannula Nasal Cannula Nasal Cannula O2 Flow Rate 2.0 2.0 2.0 05/17/19 05/17/19 05/17/19 05/17/19 01:55 01:59 03:00 04:55 Temp 98.0 98.0 Pulse 63 Resp 18 B/P (MAP) 135/67 (89) Pulse Ox 95 98 98 O2 Delivery Room Air Nasal Cannula Nasal Cannula O2 Flow Rate 2.0 2.0 05/17/19 05/17/19 04:56 07:00 Temp 98.1 98.1 Pulse 76 Resp 16 B/P (MAP) 126/57 (80) Pulse Ox 98 94 O2 Delivery Nasal Cannula Room Air O2 Flow Rate 2.0 Intake and Output 05/16/19 05/16/19 05/17/19 15:00 23:00 07:00 Intake Total 670 ml Output Total 0 ml 0 ml Balance 670 ml 0 ml CARRIE PAVON MD May 17, 2019 09:58
[2019-05-17 11:00] VITALS: BP 130/62
--- NOTE | 2019-05-17 14:06 | PDOC ---
PROGRESS NOTES Subjective Subjective Her wrist feels better Objective Vital Signs Vital Signs Date Time Temp Pulse Resp B/P (MAP) Pulse Ox O2 Delivery O2 Flow Rate FiO2 05/17/19 11:00 98.2 78 18 130/62 (84) 98 Room Air 98.2 05/17/19 09:56 2.0 Physical Exam I removed the dressing and removed the Flora drain. There is no reaccumulation of any significant hematoma. There is no significant bleeding. Fingers are slightly swollen and have decreased motion but no evidence of neurovascular in jury nor compartment syndrome. Labs Laboratory Tests Test 05/16/19 12:50 05/16/19 13:05 05/16/19 13:40 White Blood Count 6.0 x10^3/uL (4.0-11.0) Red Blood Count 4.40 x10^6/uL (3.50-5.40) Hemoglobin 13.8 g/dL (12.0-15.5) Hematocrit 39.8 % (36.0-47.0) Mean Corpuscular Volume 91 fL (79-100) Mean Corpuscular Hemoglobin 31 pg (25-35) Mean Corpuscular Hemoglobin Concent 35 g/dL (31-37) Red Cell Distribution Width 14.0 % (11.5-14.5) Platelet Count 319 x10^3/uL (140-400) Neutrophils (%) (Auto) 52 % (31-73) Lymphocytes (%) (Auto) 40 % (24-48) Monocytes (%) (Auto) 5 % (0-9) Eosinophils (%) (Auto) 3 % (0-3) Basophils (%) (Auto) 1 % (0-3) Neutrophils # (Auto) 3.1 x10^3/uL (1.8-7.7) Lymphocytes # (Auto) 2.4 x10^3/uL (1.0-4.8) Monocytes # (Auto) 0.3 x10^3/uL (0.0-1.1) Eosinophils # (Auto) 0.2 x10^3/uL (0.0-0.7) Basophils # (Auto) 0.0 x10^3/uL (0.0-0.2) Sodium Level 144 mmol/L (136-145) Potassium Level 3.3 mmol/L (3.5-5.1) Chloride Level 106 mmol/L (98-107) Carbon Dioxide Level 26 mmol/L (21-32) Anion Gap 12 (6-14) Blood Urea Nitrogen 6 mg/dL (7-20) Creatinine 1.0 mg/dL (0.6-1.0) Estimated GFR (Cockcroft-Gault) 54.3 BUN/Creatinine Ratio 6 (6-20) Glucose Level 100 mg/dL (70-99) Calcium Level 8.5 mg/dL (8.5-10.1) Total Bilirubin 0.7 mg/dL (0.2-1.0) Aspartate Amino Transf (AST/SGOT) 16 U/L (15-37) Alanine Aminotransferase (ALT/SGPT) 13 U/L (14-59) Alkaline Phosphatase 164 U/L (46-116) Total Protein 7.9 g/dL (6.4-8.2) Albumin 3.6 g/dL (3.4-5.0) Albumin/Globulin Ratio 0.8 (1.0-1.7) Prothrombin Time 26.7 SEC (11.7-14.0) Prothromb Time International Ratio 2.5 (0.8-1.1) Activated Partial Thromboplast Time 45 SEC (24-38) Assessment Assessment POD#1 incision and drainage wrist hematoma Plan Plan of Care She may be discharged home today. She can get this wet in the shower starting Saturday. She needs a follow-up visit in 10-14 days for suture removal. She may resume her usual anticoagulation. LYLY GONZALES MD May 17, 2019 14:06
--- NOTE | 2019-05-17 15:22 | PDOC3 ---
Discharge Summary Visit Information Date of Admission: May 16, 2019 Date of Discharge: May 17, 2019 Admitting Diagnosis: fall, wrist pain Final Diagnosis Tense hematoma left forearm and wrist. She had rapid swelling and deformity of the wrist and severe pain after falling, now POD #1 obese, BMI 37 afib, chronic diastolic CHF, stable hypokalemia nausea Problems Medical Problems: (1) Traumatic hematoma of wrist Status: Acute Brief Hospital Course Allergies Allergies Coded Allergies Type Severity Reaction Last Updated Verified No Known Drug Allergies 05/10/14 No Vital Signs Vital Signs Date Time Temp Pulse Resp B/P (MAP) Pulse Ox O2 Delivery O2 Flow Rate FiO2 05/17/19 11:00 98.2 78 18 130/62 (84) 98 Room Air 98.2 05/17/19 09:56 2.0 Lab Results Laboratory Tests Test 05/16/19 12:50 05/16/19 13:05 05/16/19 13:40 White Blood Count 6.0 x10^3/uL (4.0-11.0) Red Blood Count 4.40 x10^6/uL (3.50-5.40) Hemoglobin 13.8 g/dL (12.0-15.5) Hematocrit 39.8 % (36.0-47.0) Mean Corpuscular Volume 91 fL (79-100) Mean Corpuscular Hemoglobin 31 pg (25-35) Mean Corpuscular Hemoglobin Concent 35 g/dL (31-37) Red Cell Distribution Width 14.0 % (11.5-14.5) Platelet Count 319 x10^3/uL (140-400) Neutrophils (%) (Auto) 52 % (31-73) Lymphocytes (%) (Auto) 40 % (24-48) Monocytes (%) (Auto) 5 % (0-9) Eosinophils (%) (Auto) 3 % (0-3) Basophils (%) (Auto) 1 % (0-3) Neutrophils # (Auto) 3.1 x10^3/uL (1.8-7.7) Lymphocytes # (Auto) 2.4 x10^3/uL (1.0-4.8) Monocytes # (Auto) 0.3 x10^3/uL (0.0-1.1) Eosinophils # (Auto) 0.2 x10^3/uL (0.0-0.7) Basophils # (Auto) 0.0 x10^3/uL (0.0-0.2) Sodium Level 144 mmol/L (136-145) Potassium Level 3.3 mmol/L (3.5-5.1) Chloride Level 106 mmol/L (98-107) Carbon Dioxide Level 26 mmol/L (21-32) Anion Gap 12 (6-14) Blood Urea Nitrogen 6 mg/dL (7-20) Creatinine 1.0 mg/dL (0.6-1.0) Estimated GFR (Cockcroft-Gault) 54.3 BUN/Creatinine Ratio 6 (6-20) Glucose Level 100 mg/dL (70-99) Calcium Level 8.5 mg/dL (8.5-10.1) Total Bilirubin 0.7 mg/dL (0.2-1.0) Aspartate Amino Transf (AST/SGOT) 16 U/L (15-37) Alanine Aminotransferase (ALT/SGPT) 13 U/L (14-59) Alkaline Phosphatase 164 U/L (46-116) Total Protein 7.9 g/dL (6.4-8.2) Albumin 3.6 g/dL (3.4-5.0) Albumin/Globulin Ratio 0.8 (1.0-1.7) Prothrombin Time 26.7 SEC (11.7-14.0) Prothromb Time International Ratio 2.5 (0.8-1.1) Activated Partial Thromboplast Time 45 SEC (24-38) Brief Hospital Course Ms. Farooq is a 74 old fell at a store, She was at [employer] when a canvas frame landed on her wrist taken to OR by Dr. Bolanos for tense hematoma, evacuated, pain better, OK to DC, f/u ortho Discharge Information Condition at Discharge: Improved Follow Up: Weeks Disposition/Orders: D/C to Home Scheduled Warfarin Sodium (Warfarin Sodium) 3 Mg Tablet, 3 MG PO DAILY for septal defect, #30 (Reported) Entered as Reported by: JOSE J GARNICA RN on 05/16/191839 Last Taken: Unknown Dose on 05/15/19 Last Action: Last Taken Edited on 05/16/192224 by ARELY WAY Scheduled PRN Hydrocodone Bit/Acetaminophen (Hydrocodone-Apap 5-325 ) 1 Each Tablet, 1 TAB PO PRN Q6HRS PRN for PAIN, #14 Prescribed by: LOUANN CHURCH on 03/20/16 8840 Patient Instructions Patient Instructions pt seen and examined, some nausea, better before DC CARRIE PAVON MD May 17, 2019 15:22
--- NOTE | 2019-05-18 07:20 | EKG ---
[facility] [address] [place] [address] Test Date: 2019-05-16 Test Time: 12:59:35 Pat Name: PIPER RAINES Department: Room: Gender: F [employer] Repairer: : [id number] Requested By: ADRIEL MCCLELLAN Order Number: [id number] Reading MD: Measurements Intervals [place] Rate: 81 P: 0 UT: 162 QRS: 2 QRSD: 84 T: 38 QT: 412 QTc: 479 Interpretive Statements SINUS RHYTHM QRS(T) CONTOUR ABNORMALITY CONSIDER INFERIOR MYOCARDIAL DAMAGE PROLONGED QT POSSIBLY ABNORMAL ECG RI6.01 No previous ECG available for comparison
== END 2019-05-17 14:10 | disposition home or self-care (01) | DRG 988 ==
LOC: ER 12:26 → 4 NORTH 14:51 → ER 15:14
PROVIDERS: ADMIT Family Medicine; ATTEND Family Medicine
PROC: 0LC60ZZ Extirpation of Matter from Left Lower Arm and Wrist Tendon, Open Approach (ICD-10-PCS; principal; 2019-05-16 15:09)
DX: S60.212A Contusion of left wrist, initial encounter (principal); I50.32 Chronic diastolic (congestive) heart failure; S50.12XA Contusion of left forearm, initial encounter; E66.9 Obesity, unspecified; E87.6 Hypokalemia; I48.91 Unspecified atrial fibrillation; M19.90 Unspecified osteoarthritis, unspecified site; Z68.37 Body mass index [BMI] 37.0-37.9, adult; Z79.01 Long term (current) use of anticoagulants; Z82.49 Family history of ischemic heart disease and other diseases of the circulatory system; Z90.710 Acquired absence of both cervix and uterus; Z68.36 Body mass index [BMI] 36.0-36.9, adult; W18.39XA Other fall on same level, initial encounter; Y93.89 Activity, other specified; Y92.89 Other specified places as the place of occurrence of the external cause; Y99.8 Other external cause status
CPT/HCPCS: 36415; 71045; 73090; 73110; 73130; 80053; 85025; 85610; 85730; 93005; 93931; A7015; J0171; J0696; J0780; J1100; J1170; J2001; J2175; J2270; J2405; J2704; J3010; J3490; J7040; J7120; A4461; G0378